=== PATIENT | male | born 1960 | race Caucasian/White ===

== ENCOUNTER → 2024-01-05 15:43 | Outpatient (REF) | payer OTHER, SELFPAY | LOC: HWRAD 15:43 | PROVIDERS: ATTENDING PHYSICIAN Otolaryngology; FAMILY PHYSICIAN Internal Medicine | DX: R51.9 Headache, unspecified (principal) | CPT/HCPCS: 70450 ==

== ENCOUNTER → 2024-01-17 11:09 | Outpatient (REF) | payer OTHER, SELFPAY | LOC: MRI 3T 11:09 | PROVIDERS: ATTENDING PHYSICIAN Specialist; FAMILY PHYSICIAN Internal Medicine | DX: G44.84 Primary exertional headache (principal) | CPT/HCPCS: 70544 ==